=== PATIENT | male | born 1980 | race Caucasian/White ===

== ENCOUNTER 2023-12-01 23:53 | Emergency (ER) | payer MEDICAID ==
[~2023-12-01] VITALS: Ht 167.6 cm; Wt 74.8 kg
[2023-12-02] VITALS: BP 150/90; PULSE 75; RESP 18; TEMP 97.9; O2SAT 100
[2023-12-02] MEDS ORDERED: ONDANSETRON 4 MG ODT PO ONE (01:05)
[2023-12-02] MEDS ORDERED: AMOX500C25 PO (02:07)
== END 2023-12-02 02:23 | disposition home or self-care (01) ==
LOC: MED 23:53
DX: H92.01 Otalgia, right ear (principal); R05.9 Cough, unspecified; Z79.2 Long term (current) use of antibiotics
CPT/HCPCS: 99283; Q0162